=== PATIENT | male | born 1950 | race Caucasian/White ===

== ENCOUNTER 2017-01-12 18:14 | Inpatient (IN) | payer MEDICARE ==
[~2017-01-12] VITALS: Ht 177.8 cm; Wt 88.1 kg
[2017-01-12] MEDS ORDERED: SODIUM CHLORIDE FLUSH 10ML SYR IVF ONE (19:00)
[2017-01-12] MEDS ORDERED: NITROGLYCERIN/D5W PMX 250 ML IV PRN (19:00)
[2017-01-12] MEDS ORDERED: PLEASE ENTER HEIGHT AND WEIGHT MC SCH (19:00)
[2017-01-12] MEDS ORDERED: HEPARIN 25,000 UNITS/500ML PMX 500 ML ONE (19:09)
[2017-01-12 19:57] LABS: HEMATOCRIT 46.6 % (39.2-51.8); HEMOGLOBIN 16.3 g/dL (13.7-18.0); WHITE BLOOD COUNT 11.1 x10^3/uL (3.4-10)
[2017-01-12 20:07] LABS: BLOOD UREA NITROGEN 16 mg/dL (7-18)
[2017-01-12 20:12] LABS: IS PT STATUS REG ER OR PRE ER? YES
[2017-01-12] MEDS ORDERED: HEPARIN 5,000 UNITS/ML, 1ML ONE (20:16)
[2017-01-12] MEDS ORDERED: ONDANSETRON 2MG/ML, 2ML IVPush PRN (20:30)
[2017-01-12] MEDS ORDERED: morphine SULFATE 10 MG/ML, 1ML IVPush PRN (20:30)
[2017-01-12] MEDS ORDERED: TEMAZEPAM 15 MG CAPSULE PO PRN (20:30)
[2017-01-12] MEDS ORDERED: HEPARIN 5,000 UNITS/ML, 1ML IV ONE (20:30)
[2017-01-12] MEDS ORDERED: DOCUSATE 100 MG CAPSULE PO PRN (20:30)
[2017-01-12] MEDS ORDERED: HEPARIN 25,000 UNITS/500ML PMX 500 ML IV PRN (20:30)
[2017-01-12] MEDS ORDERED: HEPARIN 5,000 UNITS/ML, 1ML IV PRN (20:30)
[2017-01-12] MEDS ORDERED: METOPROLOL TARTRATE 25 MG TABLET PO SCH (20:30)
[2017-01-12] MEDS ORDERED: ACETAMINOPHEN 325 MG TABLET PO PRN (20:30)
[2017-01-12 20:40] LABS: ASPARTATE AMINO TRANSFERASE 58 U/L (15-37)
[2017-01-12 20:55] VITALS: BP 135/82
[2017-01-12] MEDS ORDERED: ATORVASTATIN 40 MG TABLET PO SCH (21:00)
[2017-01-12] MEDS ORDERED: NITROGLYCERIN 0.4 MG BOTTLE (25 TABS) SL PRN (21:00)
[2017-01-12] MEDS ORDERED: OMEP-110 PO (21:07)
[2017-01-12] MEDS ORDERED: LOSA1TAB22 PO (21:07)
[2017-01-12] MEDS ORDERED: ATOR10TA9 PO (21:07)
[2017-01-12] MEDS: SODIUM CHLORIDE 0.9% 1,000 ML IV SCH (21:37)
[2017-01-12] MEDS: CARVEDILOL 6.25 MG TABLET PO SCH (21:38)
[2017-01-12] MEDS: ATORVASTATIN 80 MG TABLET PO SCH (21:38)
[2017-01-13 02:32] VITALS: BP 90/52
[2017-01-13 02:38] LABS: ASPARTATE AMINO TRANSFERASE 45 U/L (15-37); BLOOD UREA NITROGEN 19 mg/dL (7-18)
[2017-01-13 02:39] LABS: HEMATOCRIT 42.5 % (39.2-51.8); HEMOGLOBIN 14.8 g/dL (13.7-18.0); WHITE BLOOD COUNT 9.2 x10^3/uL (3.4-10)
[2017-01-13] MEDS ORDERED: ASPIRIN 325 MG TABLET EC PO SCH (06:00)
[2017-01-13] MEDS ORDERED: ASPIRIN 81 MG TABLET EC PO SCH (06:00)
[2017-01-13 07:44] VITALS: BP 99/62
[2017-01-13] MEDS ORDERED: NITROGLYCERIN 5 MG/ML, 10ML ONE (07:56)
[2017-01-13] MEDS ORDERED: BIVALIRUDIN 250 MG ONE (07:56)
[2017-01-13] MEDS ORDERED: MIDAZOLAM 1 MG/ML, 5ML ONE (07:56)
[2017-01-13] MEDS ORDERED: VERAPAMIL 2.5 MG/ML, 2ML ONE (07:56)
[2017-01-13] MEDS ORDERED: FENTANYL PF 100 MCG/2ML ONE (07:56)
[2017-01-13] MEDS ORDERED: TICAGRELOR 90 MG TABLET ONE ×2 (07:56→19:24)
[2017-01-13] MEDS ORDERED: HEPARIN 1,000 UNITS/ML, 10ML ONE (07:57)
[2017-01-13] MEDS ORDERED: LIDOCAINE 2%, 20ML ONE (07:57)
[2017-01-13] MEDS: CARVEDILOL 6.25 MG TABLET PO SCH ×2 (08:00→17:19)
[2017-01-13] MEDS ORDERED: NITROGLYCERIN 0.4 MG BOTTLE (25 TABS) SL ONE (08:47)
[2017-01-13] MEDS: SODIUM CHLORIDE 0.9% 1,000 ML IV SCH (10:00)
[2017-01-13] MEDS ORDERED: BISACODYL 10 MG SUPP PR PRN (10:30)
[2017-01-13] MEDS ORDERED: SODIUM CHLORIDE 0.9% 1,000 ML IV SCH (10:30)
[2017-01-13] MEDS ORDERED: ONDANSETRON 2MG/ML, 2ML IV PRN (10:30)
[2017-01-13] MEDS ORDERED: ZOLPIDEM 5MG TABLET PO PRN (10:30)
[2017-01-13] MEDS ORDERED: BISACODYL 5 MG EC TABLET PO PRN (10:30)
[2017-01-13] MEDS ORDERED: ACETAMINOPHEN 325 MG TABLET PO PRN (10:30)
[2017-01-13] MEDS ORDERED: SODIUM CHLORIDE 0.9% 1,000ML IVBOLUS ONE (11:00)
[2017-01-13 13:07] VITALS: BP 99/61
[2017-01-13 17:16] VITALS: BP 108/64
[2017-01-13] MEDS: ATORVASTATIN 80 MG TABLET PO SCH (19:32)
[2017-01-13] MEDS: TICAGRELOR 90 MG TABLET PO SCH (19:32)
[2017-01-13 20:13] VITALS: BP 109/62
[2017-01-14 01:07] VITALS: BP 109/64
[2017-01-14 05:28] LABS: HEMATOCRIT 38.8 % (39.2-51.8); HEMOGLOBIN 13.4 g/dL (13.7-18.0); WHITE BLOOD COUNT 8.7 x10^3/uL (3.4-10)
[2017-01-14 05:31] LABS: BLOOD UREA NITROGEN 18 mg/dL (7-18)
[2017-01-14 06:13] VITALS: BP 111/82
[2017-01-14] MEDS: ASPIRIN 81 MG TABLET EC PO SCH (06:13)
[2017-01-14] MEDS: CARVEDILOL 6.25 MG TABLET PO SCH ×2 (06:13→18:30)
[2017-01-14 07:53] VITALS: BP 117/68
[2017-01-14] MEDS ORDERED: NITR0.4T SL (08:23)
[2017-01-14] MEDS ORDERED: DOCU-131 PO (08:23)
[2017-01-14] MEDS ORDERED: ASPI-621 PO (08:23)
[2017-01-14] MEDS ORDERED: CARV6.2512 PO (08:23)
[2017-01-14] MEDS ORDERED: TICA90TA PO (08:23)
[2017-01-14] MEDS ORDERED: TRAM50TA2 PO (08:23)
[2017-01-14] MEDS ORDERED: ATOR-2 PO (08:23)
[2017-01-14] MEDS: TICAGRELOR 90 MG TABLET PO SCH ×2 (09:00→21:25)
[2017-01-14 14:17] VITALS: BP 126/70
[2017-01-14 19:17] VITALS: BP 134/75
[2017-01-14] MEDS: ATORVASTATIN 80 MG TABLET PO SCH (21:25)
[2017-01-15 00:22] VITALS: BP 131/69
[2017-01-15 05:32] LABS: HEMATOCRIT 40.3 % (39.2-51.8); HEMOGLOBIN 14.2 g/dL (13.7-18.0)
[2017-01-15] MEDS: CARVEDILOL 6.25 MG TABLET PO SCH (06:10)
[2017-01-15] MEDS: ASPIRIN 81 MG TABLET EC PO SCH (06:11)
[2017-01-15 08:23] VITALS: BP 134/80
[2017-01-15] MEDS: TICAGRELOR 90 MG TABLET PO SCH (08:48)
[2017-01-15 10:00] VITALS: BP 135/70
== END 2017-01-15 11:20 | disposition home or self-care (01) | DRG 246 ==
LOC: EDBD 18:14 → ED 20:16 → SUATTDRO 20:24 → EDIP 20:25 → 5SO 20:48 → DCLOUNGE 01-15 11:00
PROVIDERS: ADMIT Hospitalist; ATTEND Hospitalist
PROC: 027034Z Dilation of Coronary Artery, One Artery with Drug-eluting Intraluminal Device, Percutaneous Approach (ICD-10-PCS; principal; 2017-01-13)
PROC: 4A023N7 Measurement of Cardiac Sampling and Pressure, Left Heart, Percutaneous Approach (ICD-10-PCS; 2017-01-13)
PROC: B2111ZZ Fluoroscopy of Multiple Coronary Arteries using Low Osmolar Contrast (ICD-10-PCS; 2017-01-13)
PROC: B2151ZZ Fluoroscopy of Left Heart using Low Osmolar Contrast (ICD-10-PCS; 2017-01-13)
DX: I21.4 Non-ST elevation (NSTEMI) myocardial infarction (principal); E43 Unspecified severe protein-calorie malnutrition; N17.0 Acute kidney failure with tubular necrosis; E78.5 Hyperlipidemia, unspecified; I10 Essential (primary) hypertension; I25.10 Atherosclerotic heart disease of native coronary artery without angina pectoris; K21.9 Gastro-esophageal reflux disease without esophagitis
CPT/HCPCS: 36415; 80048; 80053; 80061; 82040; 83735; 83880; 84100; 84484; 85014; 85018; 85025; 85520; 85610; 85730; 93005; 93306; 93458; 96374; 99156; 99157; C1769; C1894; C9600; J0583; J1644; J2250; J2405; J3010; J3490; C1725; C1874; C1887; J7030; Q9967